=== PATIENT | female | born 1960 ===

== ENCOUNTER 2017-06-20 12:55 | Emergency (ER) | payer OTHER ==
[2017-06-20 13:16] VITALS: RESP 18
[2017-06-20] MEDS ORDERED: Amoxicillin-Clav 875-125 mg Tab PO STA (14:01)
[2017-06-20] MEDS ORDERED: Bacitracin 500 Units/gm Oint Foilpak UD TOP ONE (14:01)
[2017-06-20] MEDS ORDERED: Amoxicillin-Clav 875-125 mg Tab PO ONE (14:08)
[2017-06-20] MEDS ORDERED: Tetanus/Diphtheria Toxoids 0.5 ml Syringe IM ONE (14:09)
[2017-06-20] MEDS ORDERED: Bacitracin 500 Units/gm Oint Foilpak UD ONE (14:09)
--- NOTE | 2017-06-20 14:51 | C.PDOC ---
History Of Present Illness 56 yo female c/o dog bite to left thigh at 730am. Pt notes she had jeans on at the time, the dog was off the leash. Paper Counter apologized and pt did not call police. No fever, no change in sensation. Time Seen by Provider: 06/20/17 13:41 Chief Complaint (Nursing): Bite History Per: Patient History/Exam Limitations: no limitations Onset/Duration Of Symptoms: Hrs Current Symptoms Are (Timing): Still Present Past Medical History Vital Signs: Last Vital Signs Temp 97.8 F 06/20/17 15:09 Pulse 80 06/20/17 15:09 Resp 18 06/20/17 13:13 BP 123/88 06/20/17 15:09 Pulse Ox 95 06/20/17 15:09 Family History: States: Unknown Family Hx - Social History Hx Alcohol Use: No Hx Substance Use: No - Immunization History Hx Tetanus Toxoid Vaccination: No Hx Influenza Vaccination: No Hx Pneumococcal Vaccination: No Review Of Systems Constitutional: Negative for: Fever Skin: Positive for: Bruising Neurological: Negative for: Weakness, Numbness Physical Exam - Physical Exam Appears: Well, Non-toxic, No Acute Distress Skin: Warm, Dry, Other ((+) pucture wound and abrasion to left anterior thigh , no discharge or bleeding) Head: Atraumatic, Normacephalic Eye(s): bilateral: Normal Inspection, PERRL, EOMI Nose: Normal Oral Mucosa: Moist Neck: Normal, Normal ROM, Supple Chest: Symmetrical Respiratory: No Accessory Muscle Use Back: Normal Inspection Extremity: Normal ROM, Tenderness (to affected area), No Swelling Pulses: Left Dorsalis Pedis: Normal, Right Dorsalis Pedis: Normal Neurological/Psych: Oriented x3, Normal Speech, Normal Motor, Normal Sensation Gait: Steady ED Course And Treatment O2 Sat by Pulse Oximetry: 97 Progress Note: Refuses XR. Tetanus ordered. DIsucssed wound care and signs of infection. Discussed f/u with animal control for rabies immunization of dog. Instructed to return to ER if symtpoms persist orw orsen. Disposition - Disposition Disposition: HOME/ ROUTINE Disposition Time: 14:48 Condition: STABLE Additional Instructions: Watch for signs of infection including redness, swelling and discharge. Follow up with animal control for rabies evaluation. Prescriptions: Amoxicillin/Clavulanate [Augmentin 875 MG-125 MG] 1 tab PO BID #14 tab Bacitracin OINT 1 applic TP BID #1 tube Instructions: Animal Bite (ED) Forms: [employer] (Romansh) - Clinical Impression Clinical Impression: Dog bite
[2017-06-20 15:13] VITALS: BP 123/88; PULSE 80; TEMP 97.8
[2017-06-20 17:29] VITALS: O2SAT 97
== END 2017-06-20 15:37 | disposition home or self-care (01) ==
LOC: C.ER 12:55
DX: S71.152A Open bite, left thigh, initial encounter (principal); W54.0XXA Bitten by dog, initial encounter; Z23 Encounter for immunization